=== PATIENT | male | born 1970 | race Caucasian/White ===

== ENCOUNTER 2017-02-19 07:21 | Day surgery (SDC) | payer OTHER ==
[2017-02-12 16:08] VITALS: BMI 25.8
[2017-02-19] MEDS ORDERED: MIDAZOLAM HCL 2 MG/2 ML SINGLE DOSE VIAL ONE ×2 (07:24→07:49)
[2017-02-19] MEDS ORDERED: PROPOFOL 20 ML ONE ×3 (07:25→10:27)
[2017-02-19] MEDS ORDERED: SUCCINYLCHOLINE CHLORIDE 200 MG/10 ML VIAL ONE (07:25)
[2017-02-19] MEDS ORDERED: ONDANSETRON 4 MG/2 ML VIAL ONE (07:29)
[2017-02-19] MEDS ORDERED: DEXAMETHASONE SOD PHOSPHATE 4 MG/1 ML VIAL ONE (07:29)
[2017-02-19] MEDS ORDERED: ROPIVACAINE HCL 0.5% 30ML VIAL ONE (07:49)
[2017-02-19] MEDS ORDERED: DEXAMETHASONE SOD PHOSPHATE/PF 10 MG/ML SDV ONE (07:49)
[2017-02-19 08:12] LABS: INR 0.95 (0.82-1.09); PROTHROMBIN TIME (PATIENT) 10.6 SEC (10.2-13.0)
[2017-02-19] MEDS ORDERED: ceFAZolin SODIUM 1 GM VIAL ONE (09:00)
[2017-02-19] MEDS ORDERED: ONDANSETRON 4 MG/2 ML VIAL IVPUSH PRN (13:03)
[2017-02-19] MEDS ORDERED: oxyCODONE HCL 5 MG TABLET PO PRN ×2 (13:03)
[2017-02-19 13:13] VITALS: BP 147/89; PULSE 69; TEMP 97.5
[2017-02-19] MEDS ORDERED: LACTATED RINGERS SOLUTION 1,000 ML IV SCH (13:15)
--- NOTE | 2017-02-21 08:35 | OP ---
DATE OF OPERATION: 02/19/2017 PREOPERATIVE DIAGNOSIS: 1. Right basal joint osteoarthritis. 2. Right thumb metacarpophalangeal joint instability. OPERATIVE PROCEDURES: 1. Right basal joint arthroplasty of thumb, carpometacarpal joint. 2. Tendon transfer of right carpometacarpal joint of thumb. 3. Right thumb metacarpophalangeal joint capsulodesis. SURGEON: Pati Handy MD MAINTENANCE SHOP WELDER: FLOWER Woodard ANESTHESIA: Regional. COMPLICATIONS: None. ESTIMATED BLOOD LOSS: Minimal. INDICATIONS FOR PROCEDURE: The patient is a 46-year-old male with the above findings, indicated for operative treatment. The risks, benefits, and alternatives were discussed with the patient at length. Proper informed consent was obtained. PROCEDURE: After proper identification of the patient and correct operative site, the patient was brought to the operating room and placed supine on the operative table. All prominences were well padded. Sedation was given by the anesthesiologist. Regional anesthesia was given. Right upper extremity was prepped and draped in the usual sterile fashion. A well-padded tourniquet was placed after sterile prep. Esmarch bandage used to exsanguinate the right upper extremity. Tourniquet was inflated to 250 mmHg. A curvilinear incision was made over the radial thumb based, which was a Stone-type incision. The incision was extended sharply through the skin and with blunt and sharp dissection through subcutaneous tissues. Neurovascular structures were carefully protected. Thenar muscle was elevated off the capsule and a longitudinal capsulotomy was performed. Significant synovitis was noted in the carpometacarpal joint of the thumb and severe arthritis was noted here as well. The trapezium was excised in whole. A suspensionplasty was then performed by inserting 1 Arthrex SwiveLock anchor into the radial space of the thumb metacarpal. This was loaded with Arthrex labral tape. A second anchor was then placed in the base of the 2nd metacarpal and appropriately tensioned with suspensionplasty. Once this was performed, full motion of the thumb carpometacarpal joint was achieved without any settling of the arthroplasty space. The capsule was then closed. One of the EPB tendons was then transferred to provide increased stability of the capsule. The skin was repaired in layers using 4-0 Vicryl and 4-0 Monocryl suture. A Elanne incision was then made over the thumb MP joint volarly. Incision was taken sharply through the skin and with blunt and sharp dissection through subcutaneous tissues taking care to retract the neurovascular structures. The A1 almita was divided. Flexor tendon was retracted and a capsulodesis was performed by making a distally based flap and then advancing the flap proximally and suturing it to the soft tissue in the area. A K wire was placed across the MP joint in 30 degrees of flexion. The wound was irrigated and repaired with 5-0 fast-absorbing plain gut. Sterile dressings were applied. Splint was placed. The patient was reversed from anesthesia and brought to the recovery room in stable condition. He tolerated the procedure well. Jaspal Wells, the cement tester assistant, was instrumental throughout this procedure. Procedure could not have been performed without a skilled operative cement tester assistant. PATI HANDY M.D. [id number]
== END 2017-02-19 13:15 | disposition home or self-care (01) ==
LOC: FASU 07:21
PROVIDERS: ATTEND Orthopaedic Surgery Hand Surgery
PROC: 0RGU0ZZ (ICD-10-PCS; 2017-02-19)
PROC: 0RQS0ZZ Repair Right Carpometacarpal Joint, Open Approach (ICD-10-PCS; principal; 2017-02-19 09:25)
DX: M18.11 Unilateral primary osteoarthritis of first carpometacarpal joint, right hand (principal); M25.341 Other instability, right hand
CPT/HCPCS: 36415; 85610; 94760

== ENCOUNTER 2019-06-09 10:52 | Day surgery (SDC) | payer OTHER ==
[2019-06-02 17:20] VITALS: BMI 25.8
[2019-06-09] MEDS ORDERED: ROPIVACAINE HCL 0.5% 30ML VIAL ONE (12:56)
[2019-06-09] MEDS ORDERED: LIDOCAINE HCL/PF 2% SDV 5ML VIAL ONE (13:39)
[2019-06-09] MEDS ORDERED: MIDAZOLAM HCL 2 MG/2 ML SINGLE DOSE VIAL ONE (13:39)
[2019-06-09] MEDS ORDERED: PROPOFOL 20 ML ONE (13:39)
[2019-06-09] MEDS ORDERED: ceFAZolin SODIUM 1 GM VIAL ONE (13:47)
[2019-06-09] MEDS ORDERED: ONDANSETRON 4 MG/2 ML VIAL ONE (14:18)
[2019-06-09] MEDS ORDERED: DEXAMETHASONE SOD PHOSPHATE 4 MG/1 ML VIAL ONE (14:18)
[2019-06-09] MEDS ORDERED: KETOROLAC TROMETHAMINE 30 MG/1 ML VIAL ONE (14:18)
[2019-06-09] MEDS ORDERED: METOPROLOL TARTRATE 5 MG/5 ML VIAL ONE (14:58)
[2019-06-09] MEDS ORDERED: METOPROLOL TARTRATE 5 MG/5 ML VIAL IVPUSH ONE ×2 (15:00→15:35)
[2019-06-09 16:35] VITALS: BP 153/102; PULSE 70; TEMP 97.7
--- NOTE | 2019-06-10 14:04 | OP ---
DATE OF OPERATION: 06/09/2019 PREOPERATIVE DIAGNOSIS: Right wrist triangular fibrocartilage complex tear. POSTOPERATIVE DIAGNOSIS: Right wrist triangular fibrocartilage complex tear. OPERATIVE PROCEDURE: Right wrist arthroscopy with debridement of joint and triangular fibrocartilage complex tear. SURGEON: Rafa Beatty MD SCRUBBING MACHINE OPERATOR: FLOWER Woodard ANESTHESIA: General. COMPLICATIONS: None. ESTIMATED BLOOD LOSS: Minimal. INDICATION FOR PROCEDURE: The patient is a 48-year-old male with the above finding, indicated for operative procedure. The risks, benefits, alternatives were discussed with patient at length. Proper informed consent was obtained. PROCEDURE: After proper identification of patient and correct operative site patient brought to the operating room, placed supine on the table, all prominences well padded. General anesthesia was given. Right upper extremity was prepped and draped in usual sterile fashion. Well-padded tourniquet was placed over the sterile prep. Esmarch bandage to exsanguinate right upper extremity. The tourniquet was inflated to 250 mmHg. Standard arthroscopy was performed through 3-4 and 4-5 portals. Both portals were made with a skin incision followed by blunt dissection of the joint capsule. A 2.7-mm arthroscope was used to enter the joint and visualize the joint. The radiocarpal joint was entered and mild chondromalacia was noted throughout the radiocarpal joint. Volar radiocarpal ligaments were intact. Some fraying was noted of the dorsal radial aspect of the joint capsule and this was debrided with a mechanical shaver. Synovitis was noted on the ulnar aspect of the wrist which was debrided as well. Once this was debrided a complex full-thickness tear of the TFCC was noted. Most significantly there was a significant tear on the volar ulnar aspect of the TFCC as well as significant fraying of the ulnar attachment and dorsal radioulnar ligament. This was all debrided with the mechanical shaver down to a healthy stable base. There was no instability of the DRUJ. There was no ulnar positive variance noted. Arthroscope was removed from the wrist and incisions were repaired using 5-0 fast-absorbing plain gut suture. Sterile dressings were applied. Patient was reversed from anesthesia and brought to the recovery room in stable condition. He tolerated the procedure well. FLOWER Woodard, the server assistant, was integral throughout the procedure. The procedure could not have been performed without a skilled operative server assistant. RAFA BEATTY M.D. [id number]
== END 2019-06-09 16:35 | disposition home or self-care (01) ==
LOC: FASU 10:52
PROVIDERS: ATTEND Orthopaedic Surgery Hand Surgery
PROC: 0RBN4ZZ Excision of Right Wrist Joint, Percutaneous Endoscopic Approach (ICD-10-PCS; principal; 2019-06-09 13:56)
DX: S63.521A Sprain of radiocarpal joint of right wrist, initial encounter (principal); X58.XXXA Exposure to other specified factors, initial encounter; Y93.9 Activity, unspecified; Y92.9 Unspecified place or not applicable
CPT/HCPCS: 94760